=== PATIENT | female | born 1965 | race Caucasian/White ===

== ENCOUNTER 2018-03-23 23:17 | Emergency (ER) | payer OTHER ==
[~2018-03-23] VITALS: Ht 170.2 cm; Wt 66.2 kg
[2018-03-23] MEDS ORDERED: CLONAZEPAM 0.50.5 M1 PO (23:46)
[2018-03-23] MEDS ORDERED: WOMEN'S DAILY1 EAC2 PO (23:46)
[2018-03-23 23:47] LABS: ABSOLUTE BASOPHILS 0.1 thou/uL (0.0-0.2); ABSOLUTE EOSINOPHILS 0.2 thou/uL (0.0-0.7); ABSOLUTE MONOCYTES 0.5 thou/uL (0.0-1.2); ABSOLUTE NEUTROPHILS 3.9 thou/uL (1.6-8.1); EOSINOPHILS 2.3 %; HEMATOCRIT 37.7 % (37.0-47.0); HEMOGLOBIN 12.9 gm/dL (12.0-15.0); LYMPHOCYTES 39.1 %; MCH 34.6 pg (26.0-34.0); MCHC 34.2 g/dL (28.0-37.0); MCV 101.3 fL (80.0-100.0); MONOCYTES 6.6 %; MPV 6.4 fl. (7.2-11.1); NUCLEATED RBCS 0 /100WBC; PLATELET COUNT* 348 thou/uL (150-400); RBC 3.72 mil/uL (4.20-5.00); RDW-CV 13.1 % (10.5-14.5); URINE BILIRUBIN NEGATIVE (Negative); URINE BLOOD NEGATIVE (Negative); URINE CLARITY CLEAR; URINE COLOR STRAW; URINE GLUCOSE-RANDOM NEGATIVE (Negative); URINE KETONES NEGATIVE (Negative); URINE LEUKOCYTES-REFLEX NEGATIVE (Negative); URINE NITRITE-REFLEX NEGATIVE (Negative); URINE PROTEIN NEGATIVE (Negative); URINE SPECIFIC GRAVITY <= 1.005 (1.005-1.030); URINE UROBILINOGEN 0.2 E.U./dl (0.2-1.0); WBC 7.7 thou/uL (4.0-11.0)
[2018-03-23] MEDS ORDERED: ST. JOSEPH ASPI81 MG PO (23:47)
[2018-03-23 23:55] LABS: AMP/METHAMP Negative (Negative); BARBITURATES Negative (Negative); BENZODIAZEPINES Negative (Negative); COCAINE Negative (Negative); METHADONE Negative (Negative); OPIATES Negative (Negative); PCP Negative (Negative); THC Negative (Negative)
[2018-03-23 23:59] LABS: ANION GAP 14 mmol/L (7-16); BUN 4 mg/dL (7-18); CALCIUM 8.7 mg/dL (8.5-10.1); CHLORIDE 100 mmol/L (98-107); CO2 23 mmol/L (21-32); CREATININE 0.7 mg/dL (0.6-1.3); GLUCOSE 90 mg/dL (70-99); POTASSIUM 3.5 mmol/L (3.5-5.1); SODIUM 137 mmol/L (136-145)
[2018-03-24 00:01] LABS: PROTIME 9.3 Seconds (9.20-11.50)
[2018-03-24 00:03] LABS: ALCOHOL 245 mg/dL (<10); SALICYLATE 6.3 mg/dL (2.8-20.0)
[2018-03-24 00:05] LABS: ACETAMINOPHEN < 2 ug/mL (10-30)
[2018-03-24 00:06] LABS: ALBUMIN 4.2 g/dL (3.4-5.0); ALKALINE PHOSPHATASE 95 U/L (46-116); SGOT 64 U/L (15-37); SGPT 61 U/L (30-65); TOTAL BILIRUBIN 0.4 mg/dL (<0.1-1.0); TOTAL PROTEIN 7.6 g/dL (6.4-8.2); TROPONIN-I LEVEL <0.06 ng/mL (<0.06)
[2018-03-24 02:00] VITALS: BP 135/84
--- NOTE | 2018-03-24 16:30 | EKG ---
[place] [address] ELECTROCARDIOGRAM REPORT Name: CARMEN BERGERON Reginaldo Room: [facility]#: [id number] Admission: 03/23/18 Attend Phys: Discharge: 03/24/18 Date of : 63 Report #: [id number] THIS REPORT FOR: //name// [facility] ED Test Date: 2018-03-24 Test Time: 00:29:52 Pat Name: CARMEN BERGERON Department: Room: Gender: Site Safety Coordinator: ARLINE : 1965 Requested By: Jeannine Marino Order Number: [id number] MD: Partha New Measurements Intervals [place] Rate: 88 P: 51 [place]: 135 QRS: 27 QRSD: 82 T: 22 QT: 390 QTc: 472 Interpretive Statements Sinus rhythm No previous ECG available for comparison Electronically Signed On 03-24-2018 16:30:09 CDT by Partha New [email or web address] <ELECTRONICALLY SIGNED> By: Partha New MD, [facility] 03/24/18 1630 0029 0029 Partha New MD, FACC /EPI
== END 2018-03-24 02:00 | disposition home or self-care (01) ==
LOC: M.ERS 23:17
PROVIDERS: Emergency Medicine
DX: F10.129 Alcohol abuse with intoxication, unspecified (principal); Y90.8 Blood alcohol level of 240 mg/100 ml or more; F17.210 Nicotine dependence, cigarettes, uncomplicated; Z88.5 Allergy status to narcotic agent; Z88.6 Allergy status to analgesic agent